=== PATIENT | female | born 1970 | race Caucasian/White ===

== ENCOUNTER 2024-01-22 16:36 | Emergency (ER) | payer OTHER, SELFPAY ==
--- NOTE | 2024-01-22 17:02 | XRR_ITS ---
PROCEDURE INFORMATION: Exam: XR Chest Exam date and time: 01/22/2024 5:34 PM Age: 53 years old Clinical indication: Cough and dyspnea and fever; Additional info: Dyspnea/cough TECHNIQUE: Imaging protocol: Radiologic exam of the chest. Views: 1 view. COMPARISON: No relevant prior studies available. FINDINGS: Lungs: Unremarkable. No consolidation or mass. Pleural spaces: Unremarkable. No pleural effusion. No pneumothorax. Heart/Mediastinum: Unremarkable. No cardiomegaly. Bones/joints: Unremarkable. XR/XR chest 1V portable [id number] IMPRESSION: No acute findings.
[2024-01-22 17:22] VITALS: BP 199/87; PULSE 79; RESP 18; TEMP 36.9; O2SAT 95; BMI 24.1
[2024-01-22 17:26] VITALS: RESP 18
--- NOTE | 2024-01-22 17:29 | ED_ITS ---
HPI - Fever 2 General: Chief Complaint: Fever Stated Complaint: headaches, fever Time Seen by Provider: 01/22/24 16:56 Source: patient Mode of arrival: ambulatory History of Present Illness: MD elicited complaint: fever Course 2 Vital Signs: Vital signs: Vital Signs Temperature 98.4 F 01/22/24 17:22 Pulse Rate 79 01/22/24 17:22 Respiratory Rate 18 01/22/24 17:26 Blood Pressure 199/87 01/22/24 17:22 Pulse Oximetry 95 01/22/24 17:22 Oxygen Delivery Me thod Room Air 01/22/24 17:22 MDM - Fever Lab Data 01/22/24 17:26 01/22/24 17:26 Discharge Plan Discharge Condition: Stable Prescriptions: No Action insulin glargine [Lantus U-100 Insulin] 100 unit/mL solution 20 unit SUBCUT DAILY hydrochlorothiazide 12.5 mg tablet 12.5 mg PO DAILY levofloxacin 750 mg tablet 750 mg PO DAILY 7 Days Qty: 7 0RF prednisone 20 mg tablet 60 mg PO DAILY 5 Days Qty: 15 0RF albuterol sulfate 90 mcg/actuation HFA aerosol inhaler 2 inh inhalation Q6H PRN (Reason: shortness of breath or wheezing) Qty: 6.7 0RF benzonatate 100 mg capsule 200 mg PO Q4H PRN (Reason: cough) Qty: 60 0RF Referrals: Zee Gomez LIME BOILER [Primary Care Provider] - Coding Level of Care Code ED Human Resources Office Assistant for Nathan Harper
[2024-01-22 17:43] LABS: Basophils # 0.1 10^3/uL (0.0-0.1); Basophils % 0.6 %; Eosinophils # 0.2 10^3/uL (0.0-0.8); Eosinophils % 2.1 %; Hematocrit 36.5 % (36-47); Lymphocytes # 2.8 10^3/uL (0.8-4.8); Lymphocytes % 33.6 %; Mean Corpuscular HGB Conc 35.6 g/dL (30-55); Mean Corpuscular Hemoglobin 31.4 pg (27-33); Mean Corpuscular Volume 88.2 fl (85-98); Mean Platelet Volume 9.8 fL (7.4-10.4); Monocytes # 0.4 10^3/uL (0.2-0.9); Monocytes % 4.4 %; Neutrophils # 4.96 10^3/uL (1.8-7.7); Neutrophils % 58.9 %; Nucleated Red Blood Cells % 0 %; Platelet Count 198 10^3/cmm (157-399); Red Blood Count 4.14 10^6/uL (3.85-5.65); Red Cell Distribution Width 12.6 % (12.1-15.1); White Blood Count 8.42 10^3/uL (3.29-11.43)
[2024-01-22 18:06] LABS: Alanine Aminotransferase 28 U/L (0-33); Albumin Level 4.4 g/dL (3.5-5.2); Alkaline Phosphatase 70 U/L (35-105); Aspartate Amino Transferase 14 U/L (0-32); Blood Urea Nitrogen 10 mg/dL (6-20); Calcium 10.3 mg/dL (8.5-10.5); Carbon Dioxide 28 mmol/L (22-29); Chloride 98 mmol/L (98-107); Creatinine Clr Calc Pharmacy 97.4498; Globulin 3.3 g/dL (1.3-4.6); Glomerular Filtration Rate 87.2 mL/min (90-130); Glucose 235 mg/dL (65-115); Osmolality Calculated 291 mOsm/kg (285-295); Sodium 137 mmol/L (136-145); Total Bilirubin 0.3 mg/dL (0.15-1.2); Total Protein 7.7 g/dL (6.6-8.7)
[2024-01-22 18:40] VITALS: RESP 18; O2SAT 91
--- NOTE | 2024-01-22 18:52 | W.ED.FEVER ---
HPI - Fever General: Chief Complaint: Fever Stated Complaint: headaches, fever Time Seen by Provider: 01/22/24 16:56 History of Present Illness: Patient presents to the ER with complaints of fever headache neck pain tiredness and weakness over the last 2 days. Patient says she went to her primary care doctor's office earlier today and was swabbed for COVID and was negative. Patient reported her primary care doctor sent her over here for further testing. Patient says over the last 2 to 3 days she has been having a fever off and on it does respond to Tylenol, has a headache that is posterior that wraps around to her anterior neck currently on the right side. Neck pain which is primarily right trapezius in nature. And just generalized weakness and fatigue. Patient does states she has migraines and she is not having a migraine during this episode. Patient states she has been off all of her medicine for some time. Upon arrival patient's blood pressure was 199/87. Physical Exam Const: COMMON NORMALS: no acute distress, average body habitus, patient oriented x3, no limitations, healthy appearing, alert and well nourished HENMT: COMMON NORMALS: normocephalic, atraumatic, hearing grossly normal bilaterally, external ears normal, Normal external nose present and moist oral mucous membranes HEAD & SCALP: normocephalic and atraumatic NOSE: Normal external nose present EXTERNAL EAR: Yes external ears normal Eye: COMMON NORMALS: Equal, round and reactive pupils present, EOMs intact bilaterally, conjunctivae normal and no scleral icterus CONJUNCTIVA: Yes conjunctivae normal PUPIL: Yes Equal, round and reactive pupils present Neck/C-Spine: COMMON NORMALS: full ROM (Mild tenderness with palpation and head movement on right trapezial muscula), no lymphadenopathy, supple, no meningeal signs, no JVD and No carotid bruits Lymph: LYMPHATIC: no lymphadenopathy noted Chest: COMMONS NORMALS: normal inspection of the chest and normal palpation of entire chest wall Resp: COMMON NORMALS: normal respiratory effort, No retractions, No use of accessory muscles and clear to auscultation bilaterally AUSCULTATION: clear to auscultation bilaterally Cardio: COMMON NORMALS: no JVD, regular rate, regular rhythm, S1 normal heart sound present, S2 normal heart sound present, No gallops present (Cardio), No clicks present (Cardio), No murmurs present (Cardio) and No rub (Cardio) RATE: regular rate RHYTHM: regular rhythm HEART SOUNDS: S1 normal heart sound present and S2 normal heart sound present GI: COMMON NORMALS: Normal to inspection, nondistended, normoactive bowel sounds present, Soft to palpation, non-tender, No hepatosplenomegaly present and no masses PALPATION: Yes Soft to palpation and Yes No hepatosplenomegaly present Neuro: COMMON NORMALS: patient oriented x3 SENSORIUM/ORIENTATION: Yes alert MENINGEAL SIGNS: Yes no meningeal signs Course Vital Signs: Vital signs: Vital Signs Temperature 98.4 F 01/22/24 17:22 Pulse Rate 79 01/22/24 20:04 Respiratory Rate 16 01/22/24 20:04 Blood Pressure 144/73 01/22/24 20:04 Pulse Oximetry 93 01/22/24 20:04 Oxygen Delivery Me thod Room Air 01/22/24 18:40 MDM - Fever Medical Decision Making Physical exam was performed lab work was obtained that included CBC CMP CRP procalcitonin urinalysis respiratory panel strep all of which was essentially negative. Chest x-ray was performed as read by the radiologist as negative. Physical exam showed patient to have right paraspinal muscular tenderness with palpation but still had good range of motion, no paraspinal muscular tenderness in the left trapezius. During patient stay her blood pressure went all the way up to 199/87 but then came all the way down to approximately 144/73. These results was discussed with the patient. Patient will keep a blood pressure log and note the time that she takes her blood pressure medicine and will follow-up with her nurse practitioner within the next week. Differential Diagnosis Unlikely abdominal pain, acute appendicitis, calculus of kidney, constipation, diverticulitis, endometriosis, gastroenteritis, pancreatitis or small bowel obstruction Medical Records I reviewed the patient's medical records. Lab Data I reviewed the patient's lab results. 01/22/24 17:26 01/22/24 17:26 Radiology Impressions Chest X-Ray 01/22/24 17:02 IMPRESSION: No acute findings. Laboratory Results WBC 8.42 10^3/uL (3.29-11.43) 01/22/24 17:26 RBC 4.14 10^6/uL (3.85-5.65) 01/22/24 17: Hgb 13.00 g/dL (11.27-16.99) 01/22/24 17:26 Hct 36.5 % (36-47) 01/22/24 17: MCV 88.2 fl (85-98) 01/22/24 17:26 MCH 31.4 pg (27-33) 01/22/24 17: MCHC 35.6 g/dL (30-55) 01/22/24 17:26 RDW 12.6 % (12.1-15.1) 01/22/24 17: Plt Count 198 10^3/cmm (157-399) 01/22/24 17:26 MPV 9.8 fL (7.4-10.4) 01/22/24 17:26 Neut % (Auto) 58.9 % 01/22/24 17:26 Lymph % (Auto) 33.6 % 01/22/24 17:26 [place] % (Auto) 4.4 % 01/22/24 17:26 Eos % (Auto) 2.1 % 01/22/24 17:26 Baso % (Auto) 0.6 % 01/22/24 17: Neut # (Auto) 4.96 10^3/uL (1.8-7.7) 01/22/24 17:26 Lymph # (Auto) 2.8 10^3/uL (0.8-4.8) 01/22/24 17:26 [place] # (Auto) 0.4 10^3/uL (0.2-0.9) 01/22/24 17:26 Eos # (Auto) 0.2 10^3/uL (0.0-0.8) 01/22/24 17: Baso # (Auto) 0.1 10^3/uL (0.0-0.1) 01/22/24 17:26 Nucleated RBC % (auto) 0 % 01/22/24: Nucleated RBCs # 0.0 /100WBC 01/22/24 17:26 Sodium 137 mmol/L (136-145) 01/22/24 17:26 Potassium 4.0 mmol/L (3.5-5.1) 01/22/24 17:26 Chloride 98 mmol/L (98-107) 01/22/24 17: Carbon Dioxide 28 mmol/L (22-29) 01/22/24 17:26 Anion Gap 15.0 (5-19) 01/22/24 17:26 BUN 10 mg/dL (6-20) 01/22/24 17:26 Creatinine 0.7 mg/dL (0.5-0.9) 01/22/24 17:26 GFR Calculation 87.2 mL/min (90-130) L 01/22/24 17:26 Glucose 235 mg/dL (65-115) H 01/22/24 17:26 Calculated Osmolality 291 mOsm/kg (285-295) 01/22/24 17:26 Calcium 10.3 mg/dL (8.5-10.5) 01/22/24 17:26 Total Bilirubin 0.3 mg/dL (0.15-1.2) 01/22/24 17:26 AST 14 U/L (0-32) 01/22/24 17:26 ALT 28 U/L (0-33) 01/22/24 17:26 Alkaline Phosphatase 70 U/L (35-105) 01/22/24 17:26 C-Reactive Protein 3.0 mg/L (0.0-4.9) 01/22/24 17:26 Total Protein 7.7 g/dL (6.6-8.7) 01/22/24 17:26 Albumin 4.4 g/dL (3.5-5.2) 01/22/24 17:26 Globulin 3.3 g/dL (1.3-4.6) 01/22/24 17:26 Procalcitonin 0.06 ng/mL (0-0.5) 01/22/24 17:26 Urine Color Yellow (Yellow) 01/22/24 18:57 Urine Appearance Clear (CLEAR) 01/22/24 18:57 Urine pH 6 (5-7) 01/22/24 18:57 Ur Specific [place] 1.020 (1.005-1.030) 01/22/24 18:57 Urine Protein Neg (Negative) 01/22/24 18:57 Urine Glucose (UA) Trace (Normal) H 01/22/24 18:57 Urine Ketones Negative (Negative) 01/22/24 18:57 Urine Blood Neg (Negative) 01/22/24 18:57 Urine Nitrate Negative (Negative) 01/22/24 18:57 Urine Bilirubin Neg (Negative) 01/22/24 18:57 Urine Urobilinogen Norm mg/dL (Negative) 01/22/24 18:57 Ur Leukocyte Esterase Negative (Negative) 01/22/24 18:57 Adenovirus (PCR) Not detected (NOT DETECT) 01/22/24 18:53 C. pneumoniae DNA (PCR) Not detected (NOT DETECT) 01/22/24 18:53 Coronavirus 229E (PCR) Not detected (NOT DETECT) 01/22/24 18:53 Human Metapneumovir PCR Not detected (NOT DETECT) 01/22/24 18:53 Influenza A (H1) PCR Not detected (NOT DETECT) 01/22/24 18:53 Influ A (H1/09) PCR Not detected (NOT DETECT) 01/22/24 18:53 Influenza A (H3) PCR Not detected (NOT DETECT) 01/22/24 18:53 Influenza Type A (PCR) Not detected (NOT DETECT) 01/22/24 18:53 Influenza Type B (PCR) Not detected (NOT DETECT) 01/22/24 18:53 M. pneumoniae (PCR) Not detected (NOT DETECT) 01/22/24 18:53 Parainfluenza 1 (PCR) Not detected (NOT DETECT) 01/22/24 18:53 Parainfluenza 2 (PCR) Not detected (NOT DETECT) 01/22/24 18:53 Parainfluenza 3 (PCR) Not detected (NOT DETECT) 01/22/24 18:53 Parainfluenza 4 (PCR) Not detected (NOT DETECT) 01/22/24 18:53 RSV Type A (PCR) Not detected (NOT DETECT) 01/22/24 18:53 RSV Type B (PCR) Not detected (NOT DETECT) 01/22/24 18:53 Entero/Rhino (PCR) Not detected (NOT DETECT) 01/22/24 18:53 SARS-CoV-2 (PCR) Not detected (NOT DETECT) 01/22/24 18:53 Group A Strep Rapid Negative (Negative) 01/22/24 18:57 All radiology interpretation(s) finalized by discharge Discharge Plan Discharge Patient Disposition: Home Clinical Impression: Hypertension Qualifiers: Hypertension type: unspecified Qualified Code(s): I10 - Essential (primary) hypertension Fatigue Qualifiers: Fatigue type: unspecified Qualified Code(s): R53.83 - Other fatigue Condition: Stable Prescriptions: No Action insulin glargine [Lantus U-100 Insulin] 100 unit/mL solution 20 unit SUBCUT DAILY hydrochlorothiazide 12.5 mg tablet 12.5 mg PO DAILY levofloxacin 750 mg tablet 750 mg PO DAILY 7 Days Qty: 7 0RF prednisone 20 mg tablet 60 mg PO DAILY 5 Days Qty: 15 0RF albuterol sulfate 90 mcg/actuation HFA aerosol inhaler 2 inh inhalation Q6H PRN (Reason: shortness of breath or wheezing) Qty: 6.7 0RF benzonatate 100 mg capsule 200 mg PO Q4H PRN (Reason: cough) Qty: 60 0RF Discharge Orders: Discharge ED (Routine); Ordered 01/22/24 Ordered By: Garry Eugene Referrals: Zee Gomez NP [Primary Care Provider] - 1 week Patient Instructions: Hypertension (ED), Fatigue (ED) Activity Restrictions/Additional Instructions: Her lab work in ER was essentially negative. Your physical exam showed you have tenderness over the right trapezius musculature in your neck. Your blood pressure alternated between real high and mildly high. Please keep a blood pressure log. Please take your blood pressure several times a day and take this appointment to your follow-up with your family nurse practitioner to discuss possible medication changes. Coding Level of Care Code ED [employer] Sprayer for Nathan Harper
[2024-01-22 19:08] LABS: Add Urine Microscopic? NO; Charge for UA Resulting for Rev
[2024-01-22 19:14] LABS: Rapid Strep A Test Negative (Negative)
[2024-01-22 19:19] LABS: Bilirubin Urine Neg (Negative); Blood Urine Neg (Negative); Glucose Urine UA Trace (Normal); Ketones Urine Negative (Negative); Leukocyte Esterase Urine Negative (Negative); Nitrate Urine Negative (Negative); Protein Urine Neg (Negative); Urine Appearance Clear (CLEAR); Urine Color Yellow (Yellow); Urobilinogen Urine Norm (Negative); pH Urine 6 (5-7)
[2024-01-22 19:52] LABS: Procalcitonin 0.06 ng/mL (0-0.5)
[2024-01-22 20:04] VITALS: BP 144/73; PULSE 79; RESP 16; O2SAT 93
[2024-01-22 20:51] LABS: Adenovirus Not Detected (NOT DETECT); Chlamydia Pneumoniae Not Detected (NOT DETECT); Coronavirus 229E,HKU1,NL63,OC4 Not Detected (NOT DETECT); Human Metapneumovirus Not Detected (NOT DETECT); Human Rhinovirus/Enterovirus Not Detected (NOT DETECT); Influenza A Not Detected (NOT DETECT); Influenza A H1 Not Detected (NOT DETECT); Influenza A H1-2009 Not Detected (NOT DETECT); Influenza A H3 Not Detected (NOT DETECT); Influenza B Not Detected (NOT DETECT); Mycoplasma Pneumoniae Not Detected (NOT DETECT); Parainfluenza Virus Type 1 Not Detected (NOT DETECT); Parainfluenza Virus Type 2 Not Detected (NOT DETECT); Parainfluenza Virus Type 3 Not Detected (NOT DETECT); Parainfluenza Virus Type 4 Not Detected (NOT DETECT); Respiratory Syncytial Virus A Not Detected (NOT DETECT); Respiratory Syncytial Virus B Not Detected (NOT DETECT); SARS-COV-2 Not Detected (NOT DETECT)
[2024-01-22 21:29] VITALS: BP 144/73; PULSE 79; RESP 16; TEMP 36.9; O2SAT 93
== END 2024-01-22 21:30 | disposition home or self-care (01) ==
PROVIDERS: Family Medicine; Emergency Provider Emergency Medicine; PCP Nurse Practitioner Family
DX: R53.83 Other fatigue (principal); I10 Essential (primary) hypertension; Z79.4 Long term (current) use of insulin; Z11.52 Encounter for screening for COVID-19
CPT/HCPCS: 36415; 71045; 80053; 81003; 84145; 85025; 86140; 87081; 87486; 87581; 87633; 87880; 99284

== ENCOUNTER 2024-11-21 11:37 | Outpatient (CLI) | payer OTHER, SELFPAY ==
--- NOTE | 2024-11-21 11:40 | MM_ITS ---
WS: [id number] VIEWS: MLO and CC views both breasts. 3D digital tomosynthesis is also included in this exam. Baseline study. Findings: There are scattered areas of fibroglandular density. No mass, tumor calcification or architectural distortion. MM/MM scr BI tomosynthesis [id number] Impression: BI-RADS: 2 - Benign. FOLLOW-UP: 1 Year Follow-up This mammogram was also analyzed by the Computer Aided Detection System [employer]otiation Manager.
== END 2024-11-21 11:38 | disposition home or self-care (01) ==
PROVIDERS: PCP Nurse Practitioner Family; Visit Provider Nurse Practitioner Family
DX: Z12.31 Encounter for screening mammogram for malignant neoplasm of breast (principal); R92.323 Mammographic fibroglandular density, bilateral breasts
CPT/HCPCS: 77063; 77067